=== PATIENT | male | born 1985 | race African-American/Black ===

== ENCOUNTER 2018-05-08 18:16 | Emergency (ER) | payer SELFPAY ==
[2018-05-08] MEDS ORDERED: NALOXONE HCL INJ 2 MG/2 ML DISP.SYRIN IV ONE (18:50)
[2018-05-08] MEDS ORDERED: NORMAL SALINE 1000 ML 1,000 ML IV ONE ×2 (18:50)
--- NOTE | 2018-05-08 18:52 | ER Document Report ---
ED Medical Screen (RME) - General Chief Complaint: Possible Overdose Stated Complaint: POSSIBLE OVERDOSE Time Seen by Provider: 05/08/18 18:51 TRAVEL OUTSIDE OF THE [place] IN LAST 30 DAYS: No - HPI Notes: 05/08/18 18:51 Patient was brought in by the police after he was arrested for taking multiple doses of Percocet. Patient denies suicidal homicidal ideation. Physical exam apart from pinpoint pupil and dry oral mucosa is unremarkable. - Related Data Allergies/Adverse Reactions: No Known Allergies Allergy (Verified 05/08/18 18:17) Past Medical History - Social History Frequency of alcohol use: daily Drug Abuse: Cocaine, Prescription drugs Renal/ Medical History: Denies: Hx Peritoneal Dialysis - Immunizations Hx Diphtheria, Pertussis, Tetanus Vaccination: Yes - UTD Physical Exam - Vital signs Vitals: Temp Pulse Resp BP Pulse Ox 97.6 F 57 L 14 128/94 H 93 05/08/18 18:33 05/08/18 18:33 05/08/18 18:33 05/08/18 18:33 05/08/18 18:33 Course - Vital Signs Vital signs: Temp Pulse Resp BP Pulse Ox 97.6 F 57 L 14 128/94 H 93 05/08/18 18:33 05/08/18 18:33 05/08/18 18:33 05/08/18 18:33 05/08/18 18:33
[2018-05-08 19:13] LABS: HEMATOCRIT 46.8 % (37.9-51.0); HEMOGLOBIN 15.7 g/dL (13.5-17.0); MEAN CORPUSCULAR HEMOGLOBIN 30.3 pg (27.0-33.4); MEAN CORPUSCULAR HGB CONC 33.6 g/dL (32.0-36.0); MEAN CORPUSCULAR VOLUME 90 fl (80-97); PLATELET COUNT 223 10^3/uL (150-450); RED BLOOD COUNT 5.18 10^6/uL (4.35-5.55); RED CELL DISTRIBUTION WIDTH 14.3 % (11.5-14.0); WHITE BLOOD COUNT 17.1 10^3/uL (4.0-10.5)
--- NOTE | 2018-05-08 19:20 | RADIOLOGY REPORT (SQ) ---
EXAM DESCRIPTION: CHEST SINGLE VIEW COMPLETED DATE/TIME: 05/08/2018 7:09 pm REASON FOR STUDY: cough COMPARISON: None. EXAM PARAMETERS: NUMBER OF VIEWS: One view. TECHNIQUE: Single frontal radiographic view of the chest acquired. RADIATION DOSE: NA LIMITATIONS: None. FINDINGS: LUNGS AND PLEURA: No opacities, masses or pneumothorax. No pleural effusion. MEDIASTINUM AND HILAR STRUCTURES: No masses. Contour normal. HEART AND VASCULAR STRUCTURES: Heart normal in size. Normal vasculature. BONES: No acute findings. HARDWARE: None in the chest. OTHER: No other significant finding. IMPRESSION: No acute abnormality of the lungs. No focal airspace opacity. TECHNICAL DOCUMENTATION: JOB ID: [id number] [employer]- All Rights Reserved Reading location - IP/workstation name: [email or web address]
--- NOTE | 2018-05-08 19:26 | EKG REPORT ---
SEVERITY:- NORMAL ECG - SINUS RHYTHM : Confirmed by: Juancarlos Warner MD 08-May-2018 19:25:33
[2018-05-08 19:30] LABS: ABSOLUTE LYMPHOCYTES# (MANUAL) 0.9 10^3/uL (0.5-4.7); ABSOLUTE MONOCYTES # (MANUAL) 1.2 10^3/uL (0.1-1.4); ALANINE AMINOTRANSFERASE 37 U/L (21-72); ALBUMIN 5.4 g/dL (3.5-5.0); ALKALINE PHOSPHATASE 110 U/L (38-126); ANION GAP 15 (5-19); ANISOCYTOSIS SLIGHT; ASPARTATE AMINO TRANSFERASE 37 U/L (17-59); BASOPHILS % (MANUAL) 0 % (0-2); BILIRUBIN,DIRECT 0.4 mg/dL (0.0-0.4); BILIRUBIN,TOTAL 1.4 mg/dL (0.2-1.3); BLOOD UREA NITROGEN 20 mg/dL (7-20); CALCIUM 10.5 mg/dL (8.4-10.2); CARBON DIOXIDE 24 mmol/L (22-30); CHLORIDE 99 mmol/L (98-107); EOSINOPHILS % (MANUAL) 0 % (0-6); GLUCOSE 131 mg/dL (75-110); LYMPHOCYTES % (MANUAL) 5 % (13-45); MONOCYTES % (MANUAL) 7 % (3-13); PLATELET COMMENT ADEQUATE; POTASSIUM 4.8 mmol/L (3.6-5.0); SEGMENTED NEUTROPHILS % (MAN) 88 % (42-78); TOTAL CELLS COUNTED 100; TOTAL PROTEIN 9.2 g/dL (6.3-8.2); TOXIC GRANULATION SLIGHT
[2018-05-08 19:33] LABS: ACETAMINOPHEN < 10 ug/mL (10-30); ALCOHOL < 10 mg/dL (NONE DETECTED); SALICYLATE < 1.0 mg/dL (2.0-20.0)
[2018-05-08 21:55] LABS: AMORPHOUS SEDIMENT,URINE TRACE /HPF; APPEARANCE,URINE TURBID; BILIRUBIN,URINE NEGATIVE (NEGATIVE); GLUCOSE, URINE NEGATIVE (NEGATIVE); KETONES,URINE 20 mg/dL (NEGATIVE); LEUKOCYTE ESTERASE,URINE NEGATIVE (NEGATIVE); NITRITE,URINE NEGATIVE (NEGATIVE); PROTEIN,URINE 30 mg/dL (NEGATIVE); URINE SPECIFIC GRAVITY 1.027; UROBILINOGEN,URINE NEGATIVE mg/dL (<2.0)
[2018-05-08 21:56] LABS: COLOR,URINE YELLOW
[2018-05-08 22:16] LABS: URINE BARBITURATES SCREEN NEGATIVE; URINE BENZODIAZEPINES SCREEN NEGATIVE; URINE COCAINE SCREEN UNCONFIRMED POSITIVE; URINE MARIJUANA (THC) SCREEN UNCONFIRMED POSITIVE; URINE METHADONE SCREEN NEGATIVE; URINE PHENCYCLIDINE SCREEN NEGATIVE
--- NOTE | 2018-05-09 01:30 | ER Document Report ---
ED General - General Chief Complaint: Possible Overdose Stated Complaint: POSSIBLE OVERDOSE Time Seen by Provider: 05/08/18 18:51 TRAVEL OUTSIDE OF THE [place] IN LAST 30 DAYS: No - HPI Notes: Patient brought to the emergency department for evaluation. Evidently he took between 7 and 1020 mg oxycodones today. He admits he has been abusing these for years. He is not prescribed him. He also said he drank some beer towards the end of the night. He was brought to the ER when mother found him with a dec reased level of consciousness. He denies any suicidal or homicidal ideation. No visual or auditory hallucination. He states that he would like help with his history of opiate abuse. He also admits to semi-regular use of cocaine. - Related Data Allergies/Adverse Reactions: No Known Allergies Allergy (Verified 05/08/18 18:17) Past Medical History - General Information source: Patient - Social History Smoking Status: Current Every Day Smoker Frequency of alcohol use: daily Drug Abuse: Cocaine, Prescription drugs Family History: Reviewed & Not Pertinent Patient has suicidal ideation: No Patient has homicidal ideation: No Renal/ Medical History: Denies: Hx Peritoneal Dialysis - Immunizations Hx Diphtheria, Pertussis, Tetanus Vaccination: Yes - UTD Review of Systems - Review of Systems Constitutional: No symptoms reported EENT: No symptoms reported Cardiovascular: No symptoms reported Respiratory: No symptoms reported Gastrointestinal: No symptoms reported Musculoskeletal: No symptoms reported Skin: No symptoms reported Neurological/Psychological: No symptoms reported Physical Exam - Vital signs Vitals: Temp Pulse Resp BP Pulse Ox 97.6 F 57 L 14 128/94 H 93 05/08/18 18:33 05/08/18 18:33 05/08/18 18:33 05/08/18 18:33 05/08/18 18:33 - Notes Notes: Vital signs reviewed, please refer to chart. Patient is normocephalic, atraumatic. Pupils equal round, reactive to light, although only 2-3 mm in size. Neck is supple without meningismus. Heart is regular rate and rhythm. Lungs are clear to auscultation bilaterally. Abdomen is soft, nontender, normoactive bowel sounds throughout. Extremities without cyanosis, clubbing, edema. Peripheral pulses are equal. Skin is warm and dry. Patient is awake, alert, neurological exam is nonfocal. Course - Re-evaluation Re-evalutation: 05/09/18 01:26 Presents emergency department for evaluation. He did not require Narcan. He was actually monitored here for several hours. He remained stable. He is not suicidal or homicidal. His laboratory investigation and imaging were entirely unremarkable. Patient feels comfortable being discharged. We will give him outpatient referral for possible counseling and drug treatment. He is to return to the emergency department with worsening or new concerning symptoms of any sort. - Vital Signs Vital signs: Temp Pulse Resp BP Pulse Ox 97.6 F 57 L 13 126/72 H 96 05/08/18 18:33 05/08/18 18:33 05/08/18 23:01 05/08/18 23:01 05/08/18 23:01 - Laboratory Result Diagrams: 05/08/18 19:00 05/08/18 19:00 Laboratory results interpreted by me: 05/08/18 05/08/18 05/08/18 19:00 19:00 20:30 WBC 17.1 H RDW 14.3 H Seg Neuts % (Manual) 88 H Lymphocytes % (Manual) 5 L Abs Neuts (Manual) 15.0 H Creatinine 1.42 H Est GFR (Non-Af Amer) 57 L Glucose 131 H Calcium 10.5 H Total Bilirubin 1.4 H Total Protein 9.2 H Albumin 5.4 H Urine Protein 30 H Urine Ketones 20 H Urine Blood SMALL H Salicylates < 1.0 L Acetaminophen < 10 L - Diagnostic Test Radiology reviewed: Reports reviewed - EKG Interpretation by Me Additional EKG results interpreted by me: 05/09/18 01:27 Sinus mechanism with a rate of 61 bpm. Normal axis and intervals, no acute ST changes concerning for ischemia or infarction. Discharge - Discharge Clinical Impression: Polysubstance dependence including opioid type drug, episodic abuse Condition: Stable Disposition: HOME, SELF-CARE Additional Instructions: You have been given list of mental health and community outpatient referrals for substance abuse. Abstain from the use of drugs, prescription or illegal. Follow-up with your primary care physician in 1-2 weeks. Return to the emergency department with worsening or new concerning symptoms of any sort.
[2018-05-09 03:05] VITALS: BP 131/86
== END 2018-05-09 02:45 | disposition home or self-care (01) ==
LOC: ER 18:16
DX: F11.20 Opioid dependence, uncomplicated (principal); F17.200 Nicotine dependence, unspecified, uncomplicated; F14.10 Cocaine abuse, uncomplicated
CPT/HCPCS: 93005; 99284; 96361; 96374; 36415; 80307 ×4; 84443; 85025; 80053; 81001; 71045; 93010; J2310; J7030